=== PATIENT | female | born 1940 | race Two or more races ===

== ENCOUNTER → 2018-05-22 | Outpatient (CLI) | payer OTHER | LOC: FIMAGING 12:36 | PROVIDERS: ATTEND Orthopaedic Surgery | DX: M17.11 Unilateral primary osteoarthritis, right knee (principal); Z01.818 Encounter for other preprocedural examination ==

== ENCOUNTER 2018-06-17 07:35 | Inpatient (IN) | payer OTHER ==
--- NOTE | 2018-06-17 06:19 | PDHPUP ---
History & Physical Update H&P update statement: This history and physical update is based on an assessment of the patient which was completed after admission or registration (within 24 hours), but prior to the surgery/procedure. H&P update: H&P reviewed & patient examined, no change in patient's condition since H&P completed
[~2018-06-17 07:35] MED LIST: ROPIVACAINE 0.2% 80 MG, EPINEPHrine 0.2 MG, KETOROLAC TROMETHAMINE 30 MG in SYRINGE 0 ML IU ONE; TRANEXAMIC ACID 3,000 MG in NS (SYRINGE) 50 ML IRR ONE
[2018-06-17] MEDS ORDERED: FAMOTIDINE 20 MG TAB PO ONE (07:44)
[2018-06-17] MEDS ORDERED: ceFAZolin 2 GM/DEXTROSE 100 ML IV ONE (07:44)
[2018-06-17] MEDS ORDERED: ACETAMINOPHEN 325 MG TAB PO ONE (07:44)
[2018-06-17] MEDS ORDERED: DEXAMETHASONE 4 MG/ML VIAL IVP ONE (07:44)
[2018-06-17] MEDS ORDERED: LIDOCAINE 1% 2 ML INJ ID PRN (07:45)
[2018-06-17] MEDS ORDERED: LR 1,000 ML IV ONE (07:45)
[2018-06-17] MEDS ORDERED: VANCOMYCIN 1 GM VIAL ONE (08:01)
[2018-06-17] MEDS ORDERED: TRANEXAMIC ACID 3,000 MG/50 ML BAG IRR ONE (08:01)
--- NOTE | 2018-06-17 10:02 | PDANEPAE ---
ANE History of Present Illness R medial partial knee replacement ANE Past Medical History - Cardiovascular History Hx Hypertension: Yes Hx Arrhythmias: No Hx Chest Pain: No Hx Coronary Artery / Peripheral Vascular Disease: No Hx CHF / Valvular Disease: No Hx Palpitations: No Cardiovascular History Comment: pcp monitors bp medications - Pulmonary History Hx COPD: No Hx Asthma/Reactive Airway Disease: No Hx Recent Upper Respiratory Infection: No Hx Oxygen in Use at Home: No Hx Sleep Apnea: No Sleep Apnea Screening Result - Last Documented: Negative Pulmonary History Comment: chronic bronchitis - Neurologic History Hx Cerebrovascular Accident: No Hx Seizures: No Hx Dementia: No Neurologic History Comment: restless leg syndrome - Endocrine History Hx Diabetes: No - Renal History Hx Renal Disorders: Yes Renal History Comment: frequency- currently wears patch to help with this. hx of bladder prolapse repair - Liver History Hx Hepatic Disorders: No - Neurological & Psychiatric Hx Hx Neurological and Psychiatric Disorders: No - Cancer History Hx Cancer: No - Congenital Disorder History Hx Congenital Disorders: No - GI History Hx Gastrointestinal Disorders: Yes Gastrointestinal History Comment: hx of esophageal dilation x2 - Other Health History Other Health History: wears glasses. hx of eczema- clear for a couple months now. occasionally she has a rash from her oxytrol patch - Chronic Pain History Chronic Pain: Yes (right knee) - Surgical History Prior Surgeries: left TKA 05/25/16. left hip repair 06/17/2017 s/p fall. bladder prolapse repair. hysterectomy. hemorrhoidectomy. appy. esophagus dilation x2. hernia repair x2. right knee meniscus repair ANE Review of Systems Review of Systems: - Exercise capacity METS (RN): 4 METS ANE Patient History - Allergies Allergies/Adverse Reactions: No Known Allergies Allergy (Verified 06/01/18 12:12) - Home Medications Home medications: home medication list seen and reviewed Home Medications: Calcium 06/01/18 [Last Taken 06/10/18] Diltiazem 06/01/18 [Last Taken 06/17/18 05:30] Omeprazole 06/01/18 [Last Taken 06/17/18 05:30] Oxytrol 06/01/18 [Last Taken 06/10/18] Potassium Chloride 06/01/18 [Last Taken 06/10/18] Ropinirole ER HS 06/01/18 [Last Taken 06/10/18] Vitamin D3 06/01/18 [Last Taken 06/10/18] Atorvastatin Calcium 06/03/18 [Last Taken 06/17/18 05:30] - NPO status NPO Status: no food or drink >8 hours NPO Since - Liquids (Date): 06/17/18 NPO Since - Liquids (Time): 05:00 NPO Since - Solids (Date): 06/16/18 NPO Since - Solids (Time): 21:00 - Smoking Hx Smoking Status: Never smoked - Alcohol Use Alcohol Use: Rarely - Family Anes Hx Family Anes Hx: none Family Hx Anesthesia Complications: none ANE Labs/Vital Signs - Labs - CBC WBC: reviewed and okay - Vital Signs Blood Pressure: 149/85 Heart Rate: 74 Respiratory Rate: 16 O2 Sat (%): 93 Height: 149.86 cm Weight: 66.678 kg ANE Physical Exam - Airway Neck exam: FROM Mallampati Score: Class 2 Mouth exam: normal dental/mouth exam - Pulmonary Pulmonary: no respiratory distress - Cardiovascular Cardiovascular: regular rate and rhythym - ASA Status ASA Status: II ANE Anesthesia Plan Anesthesia Plan: spinal Regional Anesthesia: adductor canal FNB (post op for POPC PSR)
[2018-06-17] MEDS ORDERED: PROPOFOL/EMULSION 500 MG/50 ML BOTTLE IV ONE (10:19)
[2018-06-17] MEDS ORDERED: fentaNYL 100 MCG/2 ML INJ ONE (10:19)
[2018-06-17] MEDS ORDERED: LR 500 ML IV PRN (11:09)
[2018-06-17] MEDS ORDERED: MEPERIDINE 25 MG/0.5 ML AMP IVP PRN (11:09)
[2018-06-17] MEDS ORDERED: DEXAMETHASONE 4 MG/ML VIAL IVP PRN (11:09)
[2018-06-17] MEDS ORDERED: oxyCODONE IR 5 MG TAB PO PRN ×2 (11:09→11:38)
[2018-06-17] MEDS ORDERED: ALBUTEROL 3 ML DEYVIAL IH PRN (11:09)
[2018-06-17] MEDS ORDERED: ACETAMINOPHEN 500 MG TAB PO PRN (11:09)
[2018-06-17] MEDS ORDERED: METOCLOPRAMIDE 10 MG/2 ML VIAL IVP PRN ×2 (11:09→11:38)
[2018-06-17] MEDS ORDERED: fentaNYL 100 MCG/2 ML INJ IVP PRN (11:09)
[2018-06-17] MEDS ORDERED: LABETALOL HCL 20 MG/4 ML INJ IVP PRN (11:09)
[2018-06-17] MEDS ORDERED: NALOXONE HCL 0.4 MG/ML INJ IVP PRN (11:09)
[2018-06-17] MEDS ORDERED: ONDANSETRON 4 MG/2 ML VIAL IVP PRN ×2 (11:09→11:38)
[2018-06-17] MEDS ORDERED: PROMETHAZINE HCL 25 MG/ML INJ IVP PRN ×2 (11:09→11:38)
[2018-06-17] MEDS ORDERED: HYDROCODONE/APAP 5/325 TAB PO PRN (11:09)
[2018-06-17] MEDS ORDERED: PHENYLEPHRINE HCL 100 MCG/ML SYR IVP PRN (11:09)
[2018-06-17] MEDS ORDERED: PROPOFOL 200 MG/20 ML VIAL ONE (11:14)
[2018-06-17] MEDS ORDERED: POLYETHYLENE GLYCOL 3350 17 GM PKT PO PRN (11:38)
[2018-06-17] MEDS ORDERED: diphenhydrAMINE 25 MG CAP PO PRN (11:38)
[2018-06-17] MEDS ORDERED: PROMETHAZINE HCL 25 MG SUPPR PR PRN (11:38)
[2018-06-17] MEDS ORDERED: BISACODYL 10 MG SUPP PR PRN (11:38)
[2018-06-17] MEDS ORDERED: CYCLOBENZAPRINE 10 MG TAB PO PRN (11:38)
[2018-06-17] MEDS ORDERED: TEMAZEPAM 15 MG CAP PO PRN (11:38)
[2018-06-17] MEDS ORDERED: DIPHENOXYLATE/ATROPINE LOMOTIL 1 TAB PO PRN (11:38)
[2018-06-17] MEDS ORDERED: LACTULOSE 20 GM/30 ML UDCUP PO PRN (11:38)
[2018-06-17] MEDS ORDERED: MAGNESIUM HYDROXIDE 30 ML UDCUP PO PRN (11:38)
[2018-06-17] MEDS ORDERED: ONDANSETRON DISINTEGRATING 4 MG TAB PO PRN (11:38)
--- NOTE | 2018-06-17 11:38 | POSTOPPROG ---
Post Op Note Date of Operation: 06/17/18 Surgeon: [employer] Specialist: haylee barker PA-C Anesthesiologist: dr. orantes Anesthesia: Spinal, Other (Specify) (adductor canal block) Pre-op Diagnosis: right knee OA Post-op Diagnosis: same Indication: right knee pain Procedure: R med partial knee arthroplasty, robot assisted Findings: severe medial knee OA Inf/Abcess present in the surg proc area at time of surgery?: No EBL: 50-100
[2018-06-17] MEDS ORDERED: NS 1,000 ML IV SCH (11:45)
[2018-06-17] MEDS: ACETAMINOPHEN 325 MG TAB PO SCH ×3 (13:29→17:43)
--- NOTE | 2018-06-17 15:10 | PDMN ---
Medical Necessity Medical necessity: [facility] [place] S700 total knee arthroplasty: 78 yo s/p TKA, Per ortho, recommend admitting to inpatient as patient has CKD III, GERD, advanced age. IP auth approved [id number]
[2018-06-17] MEDS: DILTIAZEM XR 240 MG CAP PO SCH (16:08)
[2018-06-17] MEDS: ceFAZolin 2 GM/DEXTROSE 100 ML IV SCH (17:43)
[2018-06-17] MEDS: SENNOSIDES/DOCUSATE SODIUM TAB PO SCH (20:06)
[2018-06-17] MEDS: POTASSIUM CL 10 MEQ TAB PO SCH (20:06)
[2018-06-17] MEDS: FAMOTIDINE 20 MG TAB PO SCH (20:07)
[2018-06-17] MEDS: ASPIRIN 81 MG CHEWABLE TAB PO SCH (20:07)
[2018-06-17] MEDS ORDERED: hydrOXYzine HCL 10 MG TAB PO SCH (21:00)
[2018-06-18] MEDS: ceFAZolin 2 GM/DEXTROSE 100 ML IV SCH (01:23)
[2018-06-18] MEDS: ACETAMINOPHEN 325 MG TAB PO SCH (05:38)
[2018-06-18 07:54] VITALS: BP 142/87
[2018-06-18] MEDS ORDERED: OXYBUTYNIN TD SCH (08:00)
--- NOTE | 2018-06-18 08:34 | SOAPPROG ---
SOAP Progress Note Assessment/Plan: Assessment: Patient is doing well POD 1 s/p Right med MPL Pain management: pain is well controlled on oral pain meds. VTE ppx: recommend aspirin 81 mg BID for 4 weeks, cont CAROL and SCDs CKD: Creatinine level is within normal limit confusion: mild short lived confusion when awoken this morning by Dr. Edge. She was able to orient to PPP with time, but if she continues to be slightly confused, recommend another night in the hospital. D/c planning: Patient has done better than anticipated. Pain has been minimal and patient has tolerated narcotic pain meds well. Patient would prefer to go home today. Ok for discharge to home if patient is released from PT Plan: 06/18/18 08:30 06/18/18 08:34 06/18/18 08:35 Subjective: patient is doing well, mild confusion when woken up from sleeping this morning, oriented with time, denies SOB ,chest pain and N/V. Objective: Vital Signs Temp Pulse Resp BP Pulse Ox 36.3 C 76 14 142/87 H 92 06/18/18 07:54 06/18/18 07:54 06/18/18 07:54 06/18/18 07:54 06/18/18 07:54 Laboratory Results 06/18/18 04:35 06/18/18 04:35 06/17/18 06/18/18 06/19/18 05:59 05:59 05:59 Intake Total 4 Output Total 1075 Balance 989 RLE: incision dresisng is clean and dry, NVI, +pf/df ICD10 Worksheet Patient Problems: Problems Problem Status Onset Primary localized osteoarthritis of right knee Acute
[2018-06-18] MEDS: DILTIAZEM XR 240 MG CAP PO SCH (08:36)
[2018-06-18] MEDS: FAMOTIDINE 20 MG TAB PO SCH (08:36)
[2018-06-18] MEDS: POTASSIUM CL 10 MEQ TAB PO SCH (08:37)
[2018-06-18] MEDS: SENNOSIDES/DOCUSATE SODIUM TAB PO SCH (08:37)
[2018-06-18] MEDS: ASPIRIN 81 MG CHEWABLE TAB PO SCH ×2 (08:37→10:41)
[2018-06-18] MEDS ORDERED: ATORVASTATIN CALCIUM 10 MG TAB PO SCH (09:00)
--- NOTE | 2018-06-18 09:38 | ASDISCHSUM ---
Discharge Information Plan Status:Home with No Needs Medically Cleared to Leave:06/17/2018 Discharge Date:06/17/2018 CM D/C Disposition:Home, Routine, Self-Care ADT D/C Disposition:Home, Routine, Self-Care Projected Discharge Date:06/17/2018 Transportation at D/C: Discharge Delay Reason: Follow-Up Date:06/17/2018 Discharge Slot: Final Diagnosis: Placement Information Patient Contact Information Contact Name:CHINMAY Relationship:Saul Address: Work Phone: City: [facility] Phone: State/Zip Code: Email: Financial Information Financial Class:Medicare Advantage Plans Primary Plan Desc:[facility] ADVANTAGE PLANS Primary Plan Number:[id number] Secondary Plan Desc: Secondary Plan Number: Assessment Information LACE LACE Length of stay for Answers: 1 day current admission Acuity / Level of Answers: Yes Care: Did the patient have an inpatient admission? Comorbidities - select Answers: Opioid dependence all that apply / Chronic pain Other Notes: HTN # of Emergency department Answers: 0 visits in the last 6 months Score: 9 Date Signed: 06/18/2018 09:36 AM Electronically Signed By:Catia Adames RN Case Management Discharge Plan Note Case Management Discharge Discharge Order Complete? Answers: Yes Discharge Comments Notes: 06/18/2018 Case Management Note No case management discharge needs identified. Pt discharging home with follow up as directed. Date Signed: 06/18/2018 09:37 AM Electronically Signed By:Catia Adames RN Intervention Information
--- NOTE | 2018-06-18 12:03 | GOP ---
DATE OF OPERATION: 06/17/2018 SURGEON: Eugene Edge MD DIGITAL ADVERTISING SPECIALIST: Kendra Edge, SUSANA. ANESTHESIA: Spinal. PREOPERATIVE DIAGNOSIS: Right knee osteoarthritis. POSTOPERATIVE DIAGNOSIS: Right knee osteoarthritis. PROCEDURE PERFORMED: Right medial compartment partial knee replacement using navigation, robotic ass ist. FINDINGS: ESTIMATED BLOOD LOSS: 30 cc. INDICATIONS: This is 78-year-old female with progressive pain of the right knee unresponsive to con servative care. Risks and benefits of surgical intervention were explained in detail. DESCRIPTION OF PROCEDURE: The patient was brought to the operating room and placed on the table in s upine position. Spinal anesthesia was induced without difficulty. A pneumatic tourniquet was applied about the right proximal thigh, and the leg was prepped and draped in sterile fashion. Attention was turned first to the distal aspect of the right femur. At 3 cm proximal to the lateral rise of the fem ur, 2 percutaneous half pins were placed for fixation of the femoral array. In a similar fashion, 2 p ins were placed anterolateral on the tibia for fixation of the tibial array. External land marking an d registration of the hip center was performed without difficulty. After exsanguination by elevation, the tourniquet was inflated to 250 mmHg. Incision was made from the tibial tuberosity to the superior pole of the patella. Dissection was alvarez ied out through the subcutaneous tissue to the deep fascia using Bovie electrocautery for hemostasis. Medial parapatellar arthrotomy was carried out to the superior pole of the patella. The medial colla teral ligament was elevated and the infrapatellar fat pad was resected. Internal femoral and tibial r egistration was carried out without difficulty and the femoral and tibial checkpoints were placed and verified for accuracy. Attention was turned to the femur. The foot print for the size 3 femoral component was cut with the 6 mm bur using the [employer] robotic system and verified for accuracy against the CT based plan. The hole wa s cut for the femoral post. In a similar fashion, the 6 mm bur was used to cut the foot print for the size 2 tibial component using the [employer] system and verified for accuracy against the CT based plan. Attention was turned to the posterior aspect of the knee and remnants of the medial meniscus were exc ised. The posterior capsule was injected with ropivacaine, epinephrine and Toradol. Trial reduction w as carried out and there was excellent range of motion, alignment and stability using the size 3 femo ral component and the size 2 tibial component, a 2 x 8 mm polyethylene. All trials were then removed. The joint was thoroughly irrigated and carefully dried. One package of cement and 1 gram of vancomycin were mixed in the vacuum mixer and placed on the fixation surfaces of all components. The components were implanted and all excess cement was thoroughly removed. Implant placement was verified against the CT view plan and found to be excellent. The tourniquet was deflated and all bleeders were coagulated. The wound was thoroughly irrigated and closed using interrupted sutures of 2-0 Vicryl for the joint capsule. The subcu was closed with 3-0 V icryl and the skin with 4-0 Monocryl. Dermabond and Steri-Strips were applied, followed by a compress tena dressing. The patient was then moved from the operating room to the recovery room in good conditi on, having tolerated the procedure well. PATHOLOGY: Severe medial compartment osteoarthritis. CASE CLASSIFICATION: Clean. /[id number]/MODL
== END 2018-06-18 11:13 | disposition home or self-care (01) | DRG 470 ==
LOC: F3N 07:35
PROVIDERS: ADMIT Orthopaedic Surgery; ATTEND Orthopaedic Surgery
DX: M17.11 Unilateral primary osteoarthritis, right knee (principal); I10 Essential (primary) hypertension; G25.81 Restless legs syndrome
CPT/HCPCS: 97116-GP; 97161-GP; C1713; G8978-GP-CK; G8979-GP-CJ; J0171; J0690; J1100; J1885; J2704; J2795; J3010; J3370